=== PATIENT | female | born 1975 | race American Indian/Alaskan Native ===

== ENCOUNTER 2016-11-04 09:48 | Emergency (ER) | payer OTHER ==
[2016-11-04] MEDS ORDERED: BABY ASPIRIN PO ONE (12:24)
[2016-11-04] MEDS ORDERED: NACL 0.9% 1000 ML 2,000 ML IV ONE (12:24)
[2016-11-04 13:26] LABS: Magnesium 2.2 mg/dL (1.7-2.3)
[2016-11-04 13:31] LABS: Alanine Aminotransferase 12 units/L (7-56); Albumin 4.5 g/dL (3.9-5); Albumin/Globulin Ratio 1.3 %; Alkaline Phosphatase 53 units/L (35-129); Anion Gap 20 mmol/L; BUN/Creatinine Ratio 13.33; Bilirubin,Total 1.2 mg/dL (0.1-1.2); Blood Urea Nitrogen 8 mg/dL (7-17); Calcium 9.5 mg/dL (8.4-10.2); Carbon Dioxide 21 mmol/L (22-30); Chloride 97.9 mmol/L (98-107); Creatine Kinase 250 units/L (30-135); Glucose 106 mg/dL (65-100); Potassium 3.9 mmol/L (3.6-5.0); Sodium 135 mmol/L (137-145); Total Protein 8.1 g/dL (6.3-8.2)
[2016-11-04 13:45] LABS: Basophils % (Auto) 0.7 % (0.0-1.8); Eosinophils % (Auto) 0.4 % (0.0-4.3); Hematocrit 38.9 % (30.3-42.9); Hemoglobin 12.9 gm/dl (10.1-14.3); Mean Corpuscular HGB Conc 33 % (30-34); Mean Corpuscular Hemoglobin 29 pg (28-32); Mean Corpuscular Volume 88 fl (79-97); Platelet Count 226 K/mm3 (140-440); Red Blood Count 4.45 M/mm3 (3.65-5.03); Red Cell Distribution Width 13.4 % (13.2-15.2); White Blood Count 4.9 K/mm3 (4.5-11.0)
[2016-11-04 14:07] LABS: Urine Drugs of Abuse Note Disclamer
[2016-11-04 14:16] LABS: Bilirubin,Urine NEG (Negative); Blood,Urine SM (Negative); Ketones,Urine TR mg/dL (Negative); Leukocyte Esterase,Urine NEG (Negative); Nitrite,Urine NEG (Negative); Protein,Urine <15 mg/dL mg/dL (Negative); RBC,Urine < 1.0 /HPF (0.0-6.0); Urobilinogen,Urine < 2.0 mg/dL (<2.0); WBC,Urine < 1.0 /HPF (0.0-6.0)
--- NOTE | 2016-11-04 14:43 | XRay Report ---
CHEST 2 VIEWS INDICATION: Hypertension. COMPARISON: 12/28/2009. FINDINGS: PA and lateral chest radiographs demonstrate normal cardiomediastinal silhouette. Clear lungs. Intact bones. EKG leads. CONCLUSION: No acute disease in the chest. Thank you for the opportunity to participate in this patient's care.
--- NOTE | 2016-11-04 15:00 | Emergency Department Report ---
ED Dizziness HPI - General Chief Complaint: Dizziness Stated Complaint: DIZZINESS Source: patient Mode of arrival: Ambulatory Limitations: No Limitations - History of Present Illness Complaint: dizziness -: Gradual, days(s) Timing: gradual onset Description: lightheadedness History of Same: Yes (reports history of drinking 1 pint per day) History of Trauma: No Severity: mild Improves With: nothing Worsens With: nothing Associated Symptoms: denies other symptoms - Related Data Previous Rx's Medication Instructions Recorded Last Taken Type Cyclobenzaprine [Flexeril] 10 mg PO TID PRN #15 tablet 09/12/15 Unknown Rx traMADol [Ultram] 50 mg PO Q4HR PRN #20 tablet 09/12/15 Unknown Rx Allergies Allergy/AdvReac Type Severity Reaction Status Date / Time No Known Allergies Allergy Unverified 09/12/15 09:18 ED Review of Systems ROS: Stated complaint: DIZZINESS Other details as noted in HPI ED Past Medical Hx - Past Medical History Previous Medical History?: No - Surgical History Past Surgical History?: No - Social History Smoking Status: Never Smoker Substance Use Type: Alcohol - Medications Home Medications: Home Medications Medication Instructions Recorded Confirmed Last Taken Type Cyclobenzaprine [Flexeril] 10 mg PO TID PRN #15 tablet 09/12/15 Unknown Rx traMADol [Ultram] 50 mg PO Q4HR PRN #20 tablet 09/12/15 Unknown Rx ED Physical Exam - General Limitations: No Limitations ED Course Vital Signs 11/04/16 11/04/16 11/04/16 10:29 12:24 13:00 Temperature 98.1 F 98.1 F Pulse Rate 115 H 80 Respiratory 20 16 16 Rate Blood Pressure 160/93 Blood Pressure 146/97 [Right] O2 Sat by Pulse 100 100 100 Oximetry ED Medical Decision Making - Lab Data Result diagrams: 11/04/16 13:30 11/04/16 Unknown - Medical Decision Making Patient comfortable. Updated with results. Plan discharge with outpatient follow-up. Patient agrees with plan and will return if symptoms worsen. See paper chart for full HPI and ROS Critical care attestation.: If time is entered above; I have spent that time in minutes in the direct care of this critically ill patient, excluding procedure time. ED Disposition Clinical Impression: Dizziness Disposition: DISCHARGED TO HOME OR SELFCARE Is pt being admited?: No Condition: Stable Instructions: Dizziness (ED) Referrals: PRIMARY CARE, [Primary Care Provider] - 3-5 Days Time of Disposition: 14:57
[2016-11-04 15:59] VITALS: BP 122/76
== END 2016-11-04 16:00 | disposition home or self-care (01) ==
LOC: ED 09:48
DX: R42 Dizziness and giddiness (principal)
CPT/HCPCS: 36415; 71020; 80053; 80307; 81001; 81025; 82550; 83735; 83880; 84484; 85025; 85379; 93005; 93010; 96360; 96361; 99284; G0480; J7030; 80320

== ENCOUNTER 2017-04-19 08:40 | Emergency (ER) | payer SELFPAY ==
[2017-04-19 09:54] VITALS: BP 128/77
[2017-04-19] MEDS ORDERED: ZESTRIL PO ONE (10:06)
--- NOTE | 2017-04-19 11:11 | Emergency Department Report ---
ED General Adult HPI - General Chief complaint: High BP Stated complaint: HEADACHE/DIZZINESS Time Seen by Provider: 04/19/17 10:06 Source: patient Mode of arrival: Ambulatory Limitations: No Limitations - History of Present Illness Initial comments: Patient is a 41-year-old female with significant past medical history who presents with headaches and concern for high blood pressure. Patient states that earlier on today she was checking her blood pressure and it was in the 150s /110 she states that she had a mild headache 4 out 10 located in the temporal area it doesn't radiate nothing makes it better or worse. Patient denies any nausea or vomiting. She states that she hasn't been diagnosed with high blood pressure and she doesn't take anything for high blood pressure. She also states that she is trying to get in with a doctor. She states that she was concerned his high blood pressure runs in her family and she wants to make sure to "stay on top of ". - Related Data Previous Rx's Medication Instructions Recorded Last Taken Type Cyclobenzaprine [Flexeril] 10 mg PO TID PRN #15 tablet 09/12/15 Unknown Rx traMADol [Ultram] 50 mg PO Q4HR PRN #20 tablet 09/12/15 Unknown Rx Allergies Allergy/AdvReac Type Severity Reaction Status Date / Time No Known Allergies Allergy Verified 04/19/17 08:45 ED Review of Systems ROS: Stated complaint: HEADACHE/DIZZINESS Other details as noted in HPI Constitutional: denies: chills, fever Eyes: denies: eye pain, eye discharge, vision change ENT: denies: ear pain, throat pain Respiratory: denies: cough, shortness of breath, wheezing Cardiovascular: denies: chest pain, palpitations Endocrine: no symptoms reported Gastrointestinal: denies: abdominal pain, nausea, diarrhea Genitourinary: denies: urgency, dysuria, discharge Musculoskeletal: denies: back pain, joint swelling, arthralgia Skin: denies: rash, lesions Neurological: headache. denies: weakness, paresthesias Psychiatric: denies: anxiety, depression Hematological/Lymphatic: denies: easy bleeding, easy bruising ED Past Medical Hx - Past Medical History Previous Medical History?: No - Surgical History Past Surgical History?: No - Social History Smoking Status: Never Smoker Substance Use Type: None - Medications Home Medications: Home Medications Medication Instructions Recorded Confirmed Last Taken Type Cyclobenzaprine [Flexeril] 10 mg PO TID PRN #15 tablet 09/12/15 Unknown Rx traMADol [Ultram] 50 mg PO Q4HR PRN #20 tablet 09/12/15 Unknown Rx ED Physical Exam - General Limitations: No Limitations General appearance: alert, in no apparent distress - Head Head exam: Present: atraumatic, normocephalic - Eye Eye exam: Present: normal appearance - ENT ENT exam: Present: mucous membranes moist - Neck Neck exam: Present: normal inspection - Respiratory Respiratory exam: Present: normal lung sounds bilaterally. Absent: respiratory distress - Cardiovascular Cardiovascular Exam: Present: regular rate, normal rhythm. Absent: systolic murmur, diastolic murmur, rubs, gallop - GI/Abdominal GI/Abdominal exam: Present: soft, normal bowel sounds - Extremities Exam Extremities exam: Present: normal inspection - Back Exam Back exam: Present: normal inspection - Neurological Exam Neurological exam: Present: alert, oriented X3 - Psychiatric Psychiatric exam: Present: normal affect, normal mood - Skin Skin exam: Present: warm, dry, intact, normal color. Absent: rash ED Course Vital Signs 04/19/17 04/19/17 04/19/17 08:51 09:46 09:47 Temperature 98.5 F Pulse Rate 115 H Respiratory 18 Rate Blood Pressure 159/109 128/77 O2 Sat by Pulse 98 100 100 Oximetry 04/19/17 04/19/17 04/19/17 09:48 09:49 11:51 Temperature Pulse Rate Respiratory 18 Rate Blood Pressure 128/77 128/77 O2 Sat by Pulse 100 100 Oximetry ED Medical Decision Making - Medical Decision Making Chief medical diagnosis: Hypertension Differential diagnosis: Tension headache, migraine headaches Will monitor patient's blood pressure and give patient oral lisinopril Patient's blood pressure is in the normal limits patient does not need any medication for her headache as it subsided. We'll discuss the patient the need to go to a primary care physician's office to be evaluated and to see if she has high blood pressure. Gave patient return precautions come to the ED. State that we do not give oral antihypertensive medication for discharge for suspicion of hypertension. Patient agrees with plan additional verbal discharge instructions. Critical care attestation.: If time is entered above; I have spent that time in minutes in the direct care of this critically ill patient, excluding procedure time. ED Disposition Clinical Impression: HTN (hypertension) Qualifiers: Hypertension type: unspecified Qualified Code(s): I10 - Essential (primary) hypertension Disposition: TO HOME OR SELFCARE Is pt being admited?: No Does the pt Need Aspirin: No Condition: Stable Instructions: Hypertension (ED) Referrals: PRIMARY CARE, [Primary Care Provider] - 3-5 Days CARI LOBO MD [Staff Physician] - 3-5 Days Time of Disposition: 11:06
== END 2017-04-19 12:24 | disposition home or self-care (01) ==
LOC: ED 08:40
DX: I10 Essential (primary) hypertension (principal)
CPT/HCPCS: 99283